=== PATIENT | male | born 1995 | race Caucasian/White ===

== ENCOUNTER 2021-01-27 09:06 | Emergency (ER) | payer MEDICAID ==
[~2021-01-27] VITALS: Ht 165.1 cm; Wt 68.1 kg
[2021-01-27 09:16] VITALS: BP 114/59
== END 2021-01-27 10:49 | disposition home or self-care (01) ==
LOC: ER 09:07
DX: S92.592A Other fracture of left lesser toe(s), initial encounter for closed fracture (principal); X58.XXXA Exposure to other specified factors, initial encounter; Y93.89 Activity, other specified; Y92.89 Other specified places as the place of occurrence of the external cause; Y99.8 Other external cause status
CPT/HCPCS: 73660; 99283

== ENCOUNTER 2021-04-08 10:39 | Emergency (ER) | payer MEDICAID ==
[~2021-04-08] VITALS: Ht 167.6 cm; Wt 65.0 kg
[2021-04-08 12:13] VITALS: BP 110/79
== END 2021-04-08 11:15 | disposition home or self-care (01) ==
LOC: ER 10:40
DX: S60.416A Abrasion of right little finger, initial encounter (principal); S80.211A Abrasion, right knee, initial encounter; W01.0XXA Fall on same level from slipping, tripping and stumbling without subsequent striking against object, initial encounter; Y93.67 Activity, basketball; Y92.89 Other specified places as the place of occurrence of the external cause; Y99.8 Other external cause status
CPT/HCPCS: 99281

== ENCOUNTER 2022-10-23 14:04 | Emergency (ER) | payer BC, MEDICAID ==
[~2022-10-23] VITALS: Ht 167.6 cm; Wt 60.2 kg
[2022-10-23 14:33] VITALS: BP 123/71
== END 2022-10-23 18:48 | disposition home or self-care (01) ==
LOC: ER 14:05
DX: M79.644 Pain in right finger(s) (principal); Z91.018 Allergy to other foods; Z79.899 Other long term (current) drug therapy; W01.0XXA Fall on same level from slipping, tripping and stumbling without subsequent striking against object, initial encounter; Y93.89 Activity, other specified; Y92.89 Other specified places as the place of occurrence of the external cause; Y99.8 Other external cause status
CPT/HCPCS: 73660; 99284